=== PATIENT | male | born 1940 | race Caucasian/White ===

== ENCOUNTER 2022-11-15 18:24 | Emergency (ER) | payer MEDICARE ==
[~2022-11-15] VITALS: Ht 177.8 cm; Wt 70.3 kg
[~2022-11-15 18:24] MED LIST: MULT-46 PO
--- NOTE | 2022-11-15 18:45 | NUR ---
PATIENT BIBA TO BED 9.
[2022-11-15 18:46] VITALS: BP 136/58
--- NOTE | 2022-11-15 18:52 | NUR ---
82/M WALKED IN C/O HIP PAIN. PT REPORTS 6/10 CONSTANT PAIN. PT HX HIP FX AND SX (12/05 AND 02/04) S/P FALL. DENIES RECENT FALL OR INJURY TO HIP. PMH: HTN, HIP FX (12/05, 02/04)
[2022-11-15] MEDS ORDERED: HYDROcodone/APAP 5/325 MG 1 TAB TAB PO ONE (19:05)
--- NOTE | 2022-11-15 19:55 | NUR ---
Patient resting in bed, A/Ox4, chest rise and fall symmetrical, no s/s of distress, patient on monitor, family at bedside. Addendum: 11/15/22 at 2102 by [email or web address] Patient resting in bed, A/Ox3, chest rise and fall symmetrical, no s/s of distress, patient on monitor, family at bedside.
[2022-11-15 20:09] LABS: BILIRUBIN,URINE NEGATIVE (NEGATIVE); BLOOD, URINE TRACE-I (NEGATIVE); COLOR,URINE YELLOW (YELLOW); LEUKOCYTE ESTERASE ,URINE 2+ (NEGATIVE); NITRITE, URINE POSITIVE (NEGATIVE); UGLUCOSE NEGATIVE (NEGATIVE)
[2022-11-15] MEDS ORDERED: methocarbamoL 500 MG TAB PO STA (20:14)
[2022-11-15] MEDS ORDERED: MORPHINE SULFATE 4 MG/ML SYR IM ONE (20:15)
[2022-11-15] MEDS ORDERED: methocarbamoL 500 MG TAB ONE (20:16)
[2022-11-15] MEDS ORDERED: MORPHINE SULFATE 4 MG/ML SYR ONE (20:17)
[2022-11-15 20:27] LABS: APPEARANCE,URINE HAZY (CLEAR)
[2022-11-15 20:43] LABS: RBC,URINE 0-5 /HPF (0-5); WBC,URINE TOO MANY TO COUNT /HPF (0-5)
[2022-11-15 20:48] LABS: BASOPHILS # (AUTO) 0.1 K/uL (0.00-0.22); BASOPHILS % (AUTO) 0.7 % (0.0-2.0); EOSINOPHILS # (AUTO) 0.3 K/uL (0-0.4); EOSINOPHILS % (AUTO) 3.3 % (0.0-4.0); HEMATOCRIT 26.7 % (36-52); HEMOGLOBIN 8.8 g/dL (12.0-18.0); LYMPHOCYTES # (AUTO) 1.7 K/uL (2.0-11.5); LYMPHOCYTES % (AUTO) 18.3 % (20.5-51.1); MEAN CORPUSCULAR HEMOGLOBIN 28 pg (27-31); MEAN CORPUSCULAR HGB CONC 33 g/dL (33-37); MEAN CORPUSCULAR VOLUME 85.8 fL (80-94); MONOCYTES # (AUTO) 1.2 K/uL (0.8-1.0); MONOCYTES % (AUTO) 12.6 % (1.7-9.3); NEUTROPHILS % (AUTO) 65.1 % (42.2-75.2); PLATELET COUNT (AUTO) 358 K/uL (140-450); RED BLOOD CELL COUNT(AUTO) 3.11 MIL/uL (4.20-6.10); WHITE BLOOD COUNT (AUTO) 9.2 K/uL (4.8-10.8)
--- NOTE | 2022-11-15 21:02 | NUR ---
Patient resting in bed, A/Ox3, chest rise and fall symmetrical, no s/s of distress, patient on monitor, family at bedside.
[2022-11-15 21:07] LABS: PROTHROMBIN TIME 11.2 secs (10.8-13.4)
[2022-11-15 21:09] LABS: ANION GAP 13.3 (8-16); CARBON DIOXIDE 25.7 mmol/L (21-32); CHLORIDE 104 mmol/L (98-107); CREATININE 1.1 mg/dL (0.6-1.3); GLUCOSE 113 mg/dL (74-106); SODIUM SERUM 139 mmol/L (136-145)
[2022-11-15 21:37] LABS: ALBUMIN 2.9 g/dL (3.4-5.0); ASPARTATE AMINOTRANSFERASE 22 U/L (15-37); TOTAL BILIRUBIN 0.6 mg/dL (0.0-1.0); UREA NITROGEN, BLOOD 20 mg/dL (7-18)
[2022-11-15] MEDS ORDERED: NACL 0.9% 1,000 ML IV ONE (22:00)
--- NOTE | 2022-11-15 22:00 | NUR ---
Patient resting in bed, A/Ox3, chest rise and fall symmetrical, no s/s of distress, patient on monitor, family at bedside.
[2022-11-15] MEDS ORDERED: cefTRIAXone 1,000 MG VIAL ONE (22:30)
--- NOTE | 2022-11-16 00:04 | NUR ---
Patient resting in bed, A/Ox3, chest rise and fall symmetrical, no s/s of distress, patient on monitor, family at bedside.
--- NOTE | 2022-11-16 00:23 | NUR ---
JOSE LUNDBERG FOR TRINIDAD CARTY TO LAB
[2022-11-16] MEDS ORDERED: MORPHINE SULFATE 2 MG/ML SYR IVP PRN (01:55)
--- NOTE | 2022-11-16 02:42 | NUR ---
Patient resting in bed, A/Ox3, chest rise and fall symmetrical, no c/o pain or s/s of distress, patient on monitor, family at bedside.
--- NOTE | 2022-11-16 02:54 | NUR ---
Patient to be transferred to [facility]. Is being transferred due to . Receiving facility has accepting physician and available space. ER physician has signed transfer form. Patient or responsible alliance party has agreed to transfer and signed form. Patient belongings inventoried and will be sent with patient. Copy of nursing notes, lab reports, EKG, Physicians Orders and X-rays to be sent with patient. Report called to Janiya CHAVARRIA at receiving facility. Janiya RN verbalized understanding of report, no furtther questions. Janiya RN also verbalized understanding of patient being sent with IV in left AC and kay catheter, no further questions. [facility] ambulance service has arrived for transfer. [facility] ambulance staff verbalized understanding of report, no further questions.
[2022-11-16 03:12] VITALS: BP 120/61
--- NOTE | 2022-11-16 03:14 | NUR ---
Patient transferred to [facility] and left with [facility] Ambulance staff.
== END 2022-11-16 03:14 | disposition short-term general hospital (02) ==
LOC: MED 18:24
DX: S73.005A Unspecified dislocation of left hip, initial encounter (principal); R53.1 Weakness; N30.00 Acute cystitis without hematuria; Z20.822 Contact with and (suspected) exposure to COVID-19; I10 Essential (primary) hypertension; Z79.899 Other long term (current) drug therapy; W18.39XA Other fall on same level, initial encounter; Y92.89 Other specified places as the place of occurrence of the external cause; Y93.89 Activity, other specified; Y99.8 Other external cause status
CPT/HCPCS: 36415; 51702; 73502; 80053; 81001; 84484; 85025; 85610; 85730; 87040; 87086; 87426; 93005; 96365; 96372; 96375; 99285; J0696; J2270; Q0092